=== PATIENT | female | born 1945 | race Caucasian/White ===

== ENCOUNTER → 2021-06-07 | Outpatient (CLI) | payer MEDICARE ==
[~2021-06-07] MED LIST: LEVAQUIN750 MG PO; LISINOPRIL20 MG PO; MEDROL DOSEPAK 24 MG PO; NORCO 5-325 TA1 EACH PO; NORVASC 5 MG TAB5 MG PO; PREDNISONE20 MG PO; PROAIR HFA8.5 GM INH; ROBITUSSIN AC480 ML PO; VENTOLIN HFA 66.7 GM INH; VIBRAMYCIN100 MG PO
== END ==
LOC: KOH-I 13:58
DX: M25.552 Pain in left hip (principal); R93.6 Abnormal findings on diagnostic imaging of limbs
CPT/HCPCS: 73502

== ENCOUNTER → 2021-09-29 | Outpatient (CLI) | payer MEDICARE ==
[~2021-09-29] MED LIST changes: +ALBUTEROL2.5 MG/3 M INH; +ASPIRIN EC81 MG PO; +BENZONATATE200 MG PO; +CLARITIN10 MG PO; +COREG25 MG PO; +GLUCOPHAGE 500500 MG PO; +LEVOFLOXACIN500 MG PO; +ONE DAILY FOR1 EAC3 PO; +TRAMADOL HCL50 MG PO; +ZOCOR20 MG PO
== END ==
LOC: KOH-I 10:08
DX: R06.02 Shortness of breath (principal); R91.8 Other nonspecific abnormal finding of lung field
CPT/HCPCS: 71046